=== PATIENT | male | born 1950 | race Caucasian/White ===

== ENCOUNTER 2016-04-20 05:35 | Observation (INO) | payer MEDICARE, BC ==
[~2016-04-20] VITALS: Ht 170.2 cm; Wt 74.0 kg
[~2016-04-20 05:35] MED LIST: ASPI1TAB69 PO; CLON1TAB PO; ENAL5TAB5 PO; FISH500C; SIMV20TA PO; VITA100022 PO
[2016-04-20] MEDS ORDERED: INSULIN HUMAN REGULAR 1,000 UNITS/10 ML VIAL SQ PRN (06:00)
[2016-04-20] MEDS ORDERED: METOPROLOL TARTRATE 25 MG TAB PO PRN (06:00)
[2016-04-20] MEDS ORDERED: AMPICILLIN/SULBAC 3 GM/NS 100 ML IV SCH ×4 (06:00)
[2016-04-20 06:06] VITALS: BP 147/96; PULSE 72; RESP 16; TEMP 98.1; O2SAT 97
[2016-04-20] MEDS ORDERED: MUPIROCIN 2% OINT 22 GM TUBE ONE ×2 (07:07→07:08)
[2016-04-20] MEDS ORDERED: OXYMETAZOLINE HCL 0.05% 15 ML NASAL SPRAY ONE (07:07)
[2016-04-20] MEDS ORDERED: FAMOTIDINE 20 MG/2 ML VIAL ONE (07:23)
[2016-04-20] MEDS ORDERED: MIDAZOLAM HCL 2 MG/2 ML VIAL ONE (07:23)
[2016-04-20] MEDS ORDERED: LACTATED RINGER'S 1000 ML IV SCH (07:30)
[2016-04-20] MEDS ORDERED: SODIUM CHLORID 0.9% 500 ML IV SCH (07:30)
[2016-04-20] MEDS ORDERED: LIDOCAINE 1%/EPINEPHrine 1:100,000 SOLN 30 ML VIAL INFIL ONE (07:41)
[2016-04-20] MEDS ORDERED: OXYMETAZOLINE HCL 0.05% 15 ML NASAL SPRAY NASAL ONE (07:41)
[2016-04-20] MEDS ORDERED: MORPHINE SULFATE 4 MG/ML INJ ONE (09:23)
[2016-04-20] MEDS ORDERED: DO NOT ADM ANY ANTICOAGULANT DRUGS XX PRN (09:45)
[2016-04-20] MEDS: LACTATED RINGER'S 1000 ML INJ 1,000 ML IV SCH ×2 (10:00→21:11)
[2016-04-20] MEDS ORDERED: ACETAMINOPHEN/HYDROcodone 325 MG/5 MG TAB PO PRN ×2 (10:00→12:00)
[2016-04-20] MEDS ORDERED: ASPIRIN EC 81 MG TABEC PO SCH (10:00)
[2016-04-20] MEDS ORDERED: ONDANSETRON HCL 4 MG/2 ML VIAL IV PUSH PRN ×2 (10:00→12:00)
[2016-04-20 10:30] VITALS: BP 128/72; PULSE 76; RESP 20; TEMP 96.2; O2SAT 94
[2016-04-20 12:00] VITALS: BP 125/68; PULSE 80; RESP 20; TEMP 97.6; O2SAT 97
[2016-04-20] MEDS ORDERED: ONDANSETRON HCL 4 MG/2 ML VIAL IV PUSH ONE (12:00)
[2016-04-20] MEDS ORDERED: PROPOFOL 200 MG/20 ML AMP IV ONE (12:00)
[2016-04-20] MEDS ORDERED: NEOSTIGMINE METHYLSULFATE 10 MG/10 ML VIAL IV PUSH ONE (12:00)
[2016-04-20] MEDS ORDERED: LACTATED RINGER'S 1000 ML INJ 1,000 ML IV ONE (12:00)
[2016-04-20] MEDS ORDERED: ePHEDrine/NS 50 MG/5 ML SYR IV ONE (12:00)
[2016-04-20 12:20] VITALS: O2SAT 94
[2016-04-20] MEDS: AMPICILLIN/SULBAC 3 GM/NS 100 ML IV SCH ×4 (13:21→21:11)
[2016-04-20 16:00] VITALS: BP 126/67; PULSE 89; RESP 22; TEMP 97.8; O2SAT 93
[2016-04-20 20:00] VITALS: BP 121/70; PULSE 90; RESP 16; TEMP 98.6; O2SAT 96
[2016-04-20] MEDS ORDERED: PRAVASTATIN SOD 40 MG TAB PO SCH (21:00)
[2016-04-20] MEDS ORDERED: clonazePAM 1 MG TAB PO SCH (21:00)
--- NOTE | 2016-04-20 23:40 | EKG ---
Date Performed: 04/20/2016 Time Performed: 06:26:39 PTAGE: 65 years EKG: Sinus rhythm NORMAL ECG NO PREVIOUS TRACING DOCTOR: Jourdan Luis Interpretating Date/Time 04/20/2016 23:39:17
[2016-04-21] VITALS: BP 113/68; PULSE 79; RESP 16; TEMP 96.4; O2SAT 92
[2016-04-21 04:00] VITALS: BP 114/57; PULSE 69; RESP 16; TEMP 96.9; O2SAT 93
[2016-04-21] MEDS: AMPICILLIN/SULBAC 3 GM/NS 100 ML IV SCH ×2 (06:32)
[2016-04-21 08:00] VITALS: BP 117/67; PULSE 75; RESP 18; TEMP 97.7; O2SAT 95
[2016-04-21] MEDS ORDERED: ENALAPRIL MALEATE 5 MG TAB PO SCH (09:00)
[2016-04-21] MEDS ORDERED: CYANOCOBALAMIN 1,000 MCG TAB PO SCH (09:00)
[2016-04-21] MEDS ORDERED: HYDROCHLOROTHIAZIDE 12.5 MG CAP PO SCH (09:00)
[2016-04-22] MEDS ORDERED: INFLUENZA VIRUS VACCINE (QUADRIVALENT) 0.5 ML SYR IM ONE (10:00)
[2016-04-23] MEDS ORDERED: ASPIRIN EC 81 MG TABEC PO SCH (09:00)
--- NOTE | 2016-05-10 10:44 | MP ---
cc: JOSE MAGANA M.D. DATE OF SURGERY: 04/20/[address] Jose Magana PREOPERATIVE DIAGNOSIS 1. Bilateral intranasal stenosis. 2. Nasal septal deviation. 3. Hypertrophy of inferior turbinates. 4. Nasal airway obstruction. POSTOPERATIVE DIAGNOSIS 1. Bilateral intranasal stenosis. 2. Nasal septal deviation. 3. Hypertrophy of inferior turbinates. 4. Nasal airway obstruction. OPERATION PERFORMED 1. Bilateral open repair of intranasal stenosis. 2. Open repair nasal septal fracture. 3. Bilateral submucosal resection of inferior turbinates. INDICATIONS Romeo Avelar is a 65-year-old man with a long history of nasal airway obstruction which he attributes to several episodes of nasal fracture which occurred in his youth and these were never repair. On examination there is very marked deviation of the anterior septum along a sharply angulated line of fracture which obstructs the right nasal airway and twists the anterior end of the quadrangular cartilage into the left nasal vestibule effectively closing the left nasal airway. DESCRIPTION OF OPERATION The patient was taken to OR #6 and placed in the supine position. Following induction of general anesthesia and intubation the nose was packed bilaterally with cotton pledgets saturated in 0.05% oxymetazoline, and was injected with a total of 12 mL of 1% Xylocaine with epinephrine 1:100,000 into the columella, the nasal vestibules of the tip and dorsum, as well as into the septal mucosa and bilateral inferior turbinates. He was then prepped and draped for surgery. The nasal packing was removed and a W-plasty incision was then made on the inferior surface of the columella and this was carried down sharply to the inferior borders of the medial crura of lower lateral cartilages. These inferior borders were then followed anteriorly and superiorly, elevating the skin from the columella and from the nasal tip and dorsum and exposing the lower lateral cartilages. These were grossly distorted due to evidence of old fracture with breaks in the junction of the lateral and medial crura. Sharp dissection then continued between the medial crura until the anterior end of the quadrangular cartilage was encountered. This was displaced into the left nasal vestibule. Then using sharp and blunt dissection the vestibular skin and mucosa were elevated from the quadrangular cartilage moving posteriorly until the angulated line of fracture was encountered. At this point the anterior end of the quadrangular cartilage was then sharply cut free from the remainder and this was placed in saline on the back table for use in reconstruction of the nasal tip. Elevation of the mucosa then continued along the quadrangular cartilage and bony septum. There was also evidence of old fracture here. A 1.5 cm dorsal cartilaginous strut was preserved. The remainder of the cartilage was removed and was also placed on the back table in saline. The bony septum was then removed with Wade-Cornelius forceps and following elevation of mucosa from the maxillary crest this crest was then removed with a 6 mm [place] chisel. It was observed that the anterior nasal spine was not present and had been absorbed following old nasal injury. At this point the intramucosal space of septum was then packed with cotton pledgets saturated in oxymetazoline. These remained in place while the inferior turbinates were addressed. These were fractured out medially and then stab incisions made along their inferior surfaces. Through these incisions the submucosal soft tissue was reduced using a curet and preserving the conchal bone. The incisions were then cauterized using the suction Bovie at 45 johnson. Attention then returned to reconstruction of the nasal septum and the nasal tip. Taking the anterior most end of the quadrangular cartilage which was removed during the dissection this was returned then to the midline of the intramucosal space. It was then sewn in place to the floor the nose with a single suture of 5-0 clear nylon, and then also sewn with a horizontal mattress suture to the dorsal cartilaginous strut. This held the cartilage in the midline. The columella was then reconstructed incorporating a 5 x 12 mm segment of quadrangular cartilage between the medial crura. This was also held in place using interrupted sutures of 5-0 clear nylon. The broken fragments of the lower lateral cartilage was then repaired bilaterally using the same 5-0 clear nylon technique, and a horizontal mattress suture was placed between the domes of the lower laterals to further define and strengthen the nasal tip. Using 4-0 Vicryl with a vejwfgt-aoc-zshrlaa horizontal mattress technique the skin of the anterior vestibule was then reattached to the underlying cartilage. The skin was then redraped over the nose. The incision was closed using interrupted sutures of 5-0 fast-absorbing plain gut. The nose was then packed with Merocel tampons coated in mupirocin ointment. Additional ointment was also applied to the columella and to the vestibules bilaterally and the procedure was terminated. The patient was reversed from anesthesia and taken to Recovery in good condition. There were no complications. Blood loss was 80 mL. MD DAVINA Covarrubias/SHANTAL /10:35 AM /10:31 AM
== END 2016-04-21 10:39 | disposition home or self-care (01) ==
LOC: HSDC 05:35 → HOCA 10:48
PROVIDERS: ADMIT Otolaryngology; ATTEND Otolaryngology
DX: J34.2 Deviated nasal septum (principal); J34.89 Other specified disorders of nose and nasal sinuses; J34.3 Hypertrophy of nasal turbinates
CPT/HCPCS: 00160; 21336; 30140; 30465; 93005; 94762; G0378; J0295; J2250; J2270; J2405; J2710; J3010; J7120